=== PATIENT | female | born 1990 | race Caucasian/White ===

== ENCOUNTER 2017-05-23 20:22 | Inpatient (IN) | payer OTHER ==
[2017-05-23] MEDS ORDERED: ONDANSETRON 4 MG/2 ML VIAL ONE ×2 (20:28→22:37)
[2017-05-23] MEDS ORDERED: HYDROmorphONE/DILAUDID 2 MG/ML INJ ONE (20:29)
[2017-05-23] MEDS ORDERED: NS 1,000 ML IV ONE (20:30)
[2017-05-23] MEDS ORDERED: HYDROmorphONE/DILAUDID 2 MG/ML INJ IVP ONE ×2 (20:30→21:15)
[2017-05-23] MEDS ORDERED: ONDANSETRON 4 MG/2 ML VIAL IVP ONE (20:30)
--- NOTE | 2017-05-23 20:35 | EDPHY ---
H & P Time Seen by Provider: 05/23/17 20:23 HPI/ROS: CHIEF COMPLAINT: LTA, right lower leg injury HISTORY OF PRESENT ILLNESS: The patient is a 27 y/o female arriving via EMS as a Limited Trauma Activation complaining of pain at the site of an open fracture to her right lower leg. She was running in stockings and tripped falling down approximately 10 steps at home. She denies striking her head, loss of consciousness, neck or back pain, abdominal pain, pelvis pain, chest pain, weakness, paresthesias, or other injuries. EMS administered 200mcg IV Fentanyl en route for pain with some alleviation. She is normally healthy. Last PO intake a few hours ago. Earlier this afternoon she consumed two beers and two shots of alcohol. Tetanus UTD. REVIEW OF SYSTEMS: A 10 point review of systems was performed and is negative with the exception of the elements mentioned in the history of present illness. Past medical history: Clavicle fracture as a child Past surgical history: Denies Family history: Noncontributory Social history: Lives in [place]. Parents at bedside. Smoker. Social alcohol use. Employed at [employer] , her is in the [employer] and is stationed in [place]. General Appearance: Alert, tearful, appears in pain. BP 147/120, HR 74. Head: Normocephalic, atraumatic. Eyes: Pupils equal and round, no conjunctival injection, no discharge. ENT, Mouth: Mucous membranes are moist, no oropharyngeal erythema or edema. No hemotympanum. Dentition intact. No malocclusion. No facial bone tenderness or deformity. Neck: No lymphadenopathy, supple. No midline tenderness. Respiratory: Lungs are clear to auscultation anterolaterally; no wheezes, rales , or rhonchi. Cardiovascular: Regular rate and rhythm; no murmur, rub, or gallop. Gastrointestinal: Abdomen is soft and non tender, no masses or organomegaly. No visible trauma. Pelvis: Stable. Normal ROM of hips. Skin: Cool and mottled diffusely and dry, no rashes, normal color. Back: Nontender to palpation over the thoracolumbar spine. Extremities: Right leg: Small puncture on medial aspect of lower leg above malleolus with controlled bleeding, externally rotated, surrounding swelling. Pulses: 2+ pedal pulses. Other extremities are atraumatic. Neurological: Alert and oriented. Splinting right leg due to pain, otherwise moving extremities equally and easily. Strength 5/5 both UEs major motor groups , LLE major motor groups. Able to wiggle right toes. Psychiatric: Normal affect. Constitutional: Initial Vital Signs Temperature (C) 36.3 C 05/23/17 20:30 Heart Rate 74 05/23/17 20:30 Respiratory Rate 16 05/23/17 20:30 Blood Pressure 147/120 H 05/23/17 20:30 O2 Sat (%) 96 05/23/17 20:30 O2 Delivery Mode Room Air Allergies/Adverse Reactions: oxycodone [From Percocet] Adverse Reaction (Mild, Unverified 05/23/17 21:41) Vomiting Sulfa (Sulfonamide Antibiotics) Adverse Reaction (Mild, Unverified 05/23/17 21: 40) Abdominal Cramping Home Medications: Medication Instructions Recorded Melatonin [Melatonin 3 MG (*)] 3 mg PO HS PRN 05/23/17 Medical Decision Making - Diagnostics Imaging Results: Imaging Impressions Tibia/Fibula X-Ray 05/23/17 20:30 Impression: Comminuted displaced fractures of the distal tibial and fibular diaphyses with lateral rotation. Imaging: I viewed and interpreted images myself ED Course/Re-evaluation: This is a healthy 27 y/o female who presents with isolated injury to her right lower leg secondary to falling down 10 stairs at home after slipping. She has an open comminuted tibia and fibula fracture of her right leg confirmed on x- ray with surrounding swelling and tenderness. She is neurovascularly intact. She will need urgent orthopedic consultation. Plan for IV, labs, pain management. 1mg IV Dilaudid, 4mg IV Zofran, 5mg IV Valium, 2mg IV Ancef administered. Will maintain NPO status. 2053: Consulted with Dr. Hernandes, orthopedic surgeon. He will evaluate patient in the ED. Patient re-examined. 2+ right DP pulse. Sensation intact RLE to light touch. Lungs CTA, heart regular, abdomen soft and nontender. Back and neck nontender to palpation over spine. No long bone tenderness. Normal strength both UEs, LLE. Alert, appropriate. Additional 1mg IV Dilaudid administered for pain. 2114: Dr. Hernandes is at bedside assessing patient. Patient will be taken from ED to OR. Differential Diagnosis: I considered a differential diagnosis of traumatic injury that includes but is not limited to intracranial hemorrhage, skull fracture, concussion, vertebral injury, spinal cord injury, intrathoracic injury, intra-abdominal injury, long bone fractures, contusions, abrasions, and lacerations. - Data Points Laboratory Results: Laboratory Results 05/23/17 20:34 05/23/17 20:34 05/23/17 05/23/17 05/23/17 20:34 20:34 20:34 WBC 9.52 10^3/uL H 10^3/uL (3.80-9.50) RBC 4.51 10^6/uL 10^6/uL (4.18-5.33) Hgb 13.7 g/dL g/dL (12.6-16.3) Hct 40.8 % % (38.0-47.0) MCV 90.5 fL fL (81.5-99.8) MCH 30.4 pg pg (27.9-34.1) MCHC 33.6 g/dL g/dL (32.4-36.7) RDW 12.9 % % (11.5-15.2) Plt Count 251 10^3/uL 10^3/uL (150-400) MPV 9.1 fL fL (8.7-11.7) Neut % (Auto) 56.7 % % (39.3-74.2) Lymph % (Auto) 29.3 % % (15.0-45.0) [place] % (Auto) 11.9 % % (4.5-13.0) Eos % (Auto) 0.9 % % (0.6-7.6) Baso % (Auto) 0.9 % % (0.3-1.7) Nucleat RBC Rel Count 0.0 % % (0.0-0.2) Absolute Neuts (auto) 5.39 10^3/uL 10^3/uL (1.70-6.50) Absolute Lymphs (auto) 2.79 10^3/uL 10^3/uL (1.00-3.00) Absolute Monos (auto) 1.13 10^3/uL H 10^3/uL (0.30-0.80) Absolute Eos (auto) 0.09 10^3/uL 10^3/uL (0.03-0.40) Absolute Basos (auto) 0.09 10^3/uL 10^3/uL (0.02-0.10) Absolute Nucleated RBC 0.00 10^3/uL 10^3/uL (0-0.01) Immature Gran % 0.3 % % (0.0-1.1) Immature Gran # 0.03 10^3/uL 10^3/uL (0.00-0.10) Sodium 139 mEq/L mEq/L (135-145) Potassium 3.6 mEq/L mEq/L (3.5-5.2) Chloride 99 mEq/L mEq/L (97-110) Carbon Dioxide 27 mEq/l mEq/l (22-31) Anion Gap 13 mEq/L mEq/L (8-16) BUN 14 mg/dL mg/dL (7-23) Creatinine 0.7 mg/dL mg/dL (0.6-1.0) Estimated GFR > 60 Glucose 89 mg/dL mg/dL (70-100) Calcium 9.3 mg/dL mg/dL (8.5-10.4) Beta HCG, Qual NEGATIVE Medications Given: Discontinued Medications Diazepam (Valium) 5 mg IVP EDNOW ONE Stop: 05/23/17 20:45 Last Admin: 05/23/17 20:47 Dose: 5 mg Hydromorphone HCl (Dilaudid) 1 mg IVP EDNOW ONE Stop: 05/23/17 20:31 Last Admin: 05/23/17 20:40 Dose: 1 mg Hydromorphone HCl (Dilaudid) 1 mg IVP EDNOW ONE Stop: 05/23/17 21:16 Last Admin: 05/23/17 21:17 Dose: 1 mg Sodium Chloride (Ns) 1,000 mls @ 0 mls/hr IV ONCE ONE; Wide Open PRN Reason: Protocol Stop: 05/23/17 20:31 Last Admin: 05/23/17 20:42 Dose: 1,000 mls Cefazolin Sodium (Cefazolin Syringe) 2 gm in 20 mls @ 200 mls/hr IVP ONCALL ONE PRN Reason: Protocol Stop: 05/23/17 21:27 Last Admin: 05/23/17 21:38 Dose: 20 mls Ondansetron HCl (Zofran) 4 mg IVP EDNOW ONE Stop: 05/23/17 20:31 Last Admin: 05/23/17 20:40 Dose: 4 mg Departure - Departure Disposition: [facility] Inpatient Acute Clinical Impression: Tibia and fibula open fracture, right Qualifiers: Encounter type: initial encounter Open fracture type: open type I or II Qualified Code(s): S82.201B - Unspecified fracture of shaft of right tibia, initial encounter for open fracture type I or II Condition: Fair Report Scribed for: Lynn Loyd Report Scribed by: Monica Garcia Date of Report: 05/23/17 Time of Report: 21:19 Physician Review and Approval Statement: 05/23/17 22:03 Portions of this note were transcribed by the medical claims manager. I, Dr. Lynn Loyd, personally performed the history, physical exam, and medical decision- making; and confirmed the accuracy of the information in the transcribed note.
[2017-05-23] MEDS ORDERED: DIAZEPAM 5 MG/ML 1 ML SYR IVP ONE (20:44)
[2017-05-23 20:46] LABS: PLATELET COUNT 251 10^3/uL (150-400)
[2017-05-23] MEDS ORDERED: ceFAZolin 2 GM/SWFI 2 GM/20 ML SYR IVP ONE (21:22)
--- NOTE | 2017-05-23 22:05 | GCON ---
[f rep st] CONSULTATION ORTHOPEDIC CONSULTATION DATE OF CONSULTATION: 05/23/2017 REASON FOR CONSULTATION: Open tibia/fibula fracture, right. HISTORY OF PRESENT ILLNESS: The patient is a 27-year-old female, who slipped in her socks and fell d own about 10 stairs, was brought to the [facility] Emergency Department via ambulance, found have an open tibia and fibular fracture. I was consulted from the trauma bay. PRIOR MEDICAL HISTORY: None. SURGICAL HISTORY: None. SOCIAL HISTORY: . Lives here in town. Parents at the bedside. She smokes half-pack per day . Occasional alcohol use. She did drink earlier today. REVIEW OF SYSTEMS: No shortness of breath. No chest pain. She did not have loss of consciousness w ith this fall. PHYSICAL EXAMINATION: GENERAL: She is alert and oriented x3. Answers questions appropriately. VIT AL SIGNS: Blood pressure is 147/120, heart rate 74, respiratory rate 16, saturating 96% on room air. HEENT: Normocephalic, atraumatic. Extraocular muscles intact. NECK: Supple. There is no lympha denopathy. No JVD. CHEST: Clear to auscultation. CARDIOVASCULAR: Regular rate and rhythm. ABDOM EN: Soft, nontender, nondistended. EXTREMITIES: She has a puncture wound 4 cm proximal to the ankl e joint. It is actively bleeding. There is a dressing in place. The foot is externally rotated. S he does have 2+ dorsalis pedis and posterior tibial pulses. She can move her toes. Sensation to lig ht touch is intact on both the dorsum and plantar aspect of her foot. X-RAYS: Three views of the tibia show a complex tibia and fibula fracture. ASSESSMENT: Open tibia/fibula fracture, right lower extremity. PLAN: She is given 2 g of Ancef in the emergency department. She will be brought up urgently to the operating room for irrigation and debridement, and an intramedullary nailing of the tibia and open r eduction and internal fixation of the fibula. Risks and benefits including potential for infection, blood clots were all discussed. She understands these risks, wished to proceed. /[id number]/MODL
--- NOTE | 2017-05-23 22:27 | PDANEPAE ---
ANE History of Present Illness ORIF and washout R tib/fib ANE Past Medical History - Pulmonary History Hx Oxygen in Use at Home: No - Endocrine History Hx Diabetes: No ANE Review of Systems Review of Systems: - Exercise capacity Exercise capacity: >=4 METS ANE Patient History - Allergies Allergies/Adverse Reactions: oxycodone [From Percocet] Adverse Reaction (Mild, Unverified 05/23/17 21:41) Vomiting Sulfa (Sulfonamide Antibiotics) Adverse Reaction (Mild, Unverified 05/23/17 21: 40) Abdominal Cramping - Home Medications Home medications: home medication list seen and reviewed Home Medications: Melatonin [Melatonin 3 MG (*)] 3 mg PO HS PRN 05/23/17 [Last Taken 2 Weeks Ago ~ 05/09/17] - NPO status NPO Since - Liquids (Date): 05/23/17 NPO Since - Liquids (Time): 17:15 NPO Since - Solids (Date): 05/23/17 NPO Since - Solids (Time): 16:00 - Smoking Hx Smoking Status: Light smoker (1/2 ppd) - Alcohol Use Alcohol Use: Occasionally ANE Labs/Vital Signs - Labs Result Diagrams: 05/23/17 20:34 05/23/17 20:34 - Vital Signs Blood Pressure: 139/98 Heart Rate: 78 Respiratory Rate: 16 O2 Sat (%): 98 Height: 162.56 cm Weight: 63.503 kg ANE Physical Exam - Airway Mallampati Score: Class 2 Mouth exam: normal dental/mouth exam - Pulmonary Pulmonary: no respiratory distress - Cardiovascular Cardiovascular: regular rate and rhythym - ASA Status ASA Status: II, E ANE Anesthesia Plan Anesthesia Plan: general endotracheal anesthesia (RSI declines spinal)
[2017-05-23] MEDS ORDERED: PROPOFOL/EMULSION 500 MG/50 ML BOTTLE IV ONE (22:34)
[2017-05-23] MEDS ORDERED: LIDOCAINE HCL 160 MG/4 ML LTA KIT TP ONE (22:36)
[2017-05-23] MEDS ORDERED: DEXAMETHASONE 4 MG/ML VIAL ONE ×2 (22:37)
[2017-05-23] MEDS ORDERED: ROCURONIUM 50 MG/5 ML VIAL ONE (22:37)
[2017-05-23] MEDS ORDERED: LIDOCAINE 2% 100 MG/5 ML SYR ONE (22:38)
[2017-05-23] MEDS ORDERED: ceFAZolin 1 GM VIAL ONE (23:14)
[2017-05-24] MEDS ORDERED: SUGAMMADEX SODIUM 200 MG/2 ML VIAL IVP ONE (00:41)
[2017-05-24] MEDS ORDERED: ONDANSETRON 4 MG/2 ML VIAL IVP PRN (00:56)
[2017-05-24] MEDS ORDERED: ALBUTEROL 3 ML DEYVIAL IH PRN (00:56)
[2017-05-24] MEDS ORDERED: ACETAMINOPHEN 500 MG TAB PO PRN (00:56)
[2017-05-24] MEDS ORDERED: LABETALOL HCL 5 MG/ML 20 ML MDV IVP PRN (00:56)
[2017-05-24] MEDS ORDERED: oxyCODONE IR 5 MG TAB PO PRN (00:56)
[2017-05-24] MEDS ORDERED: PROMETHAZINE HCL 25 MG/ML INJ IVP PRN (00:56)
[2017-05-24] MEDS ORDERED: DEXAMETHASONE 4 MG/ML VIAL IVP PRN (00:56)
[2017-05-24] MEDS ORDERED: NALOXONE HCL 0.4 MG/ML INJ IVP PRN (00:56)
[2017-05-24] MEDS ORDERED: LR 500 ML IV PRN (00:56)
[2017-05-24] MEDS ORDERED: METOCLOPRAMIDE 10 MG/2 ML VIAL IVP PRN (00:56)
[2017-05-24] MEDS ORDERED: HYDROCODONE/APAP 5/325 TAB PO PRN (00:56)
--- NOTE | 2017-05-24 01:03 | POSTOPPROG ---
Post Op Note Date of Operation: 05/24/17 Surgeon: Robby Hernandes Anesthesiologist: Santana Anesthesia: GET(General Endotracheal) Pre-op Diagnosis: open tib/fibula fracture Post-op Diagnosis: same Procedure: 1. IMN tibia, 2. ORIF fibula, 3. I&D Findings: open fx Inf/Abcess present in the surg proc area at time of surgery?: No EBL: 100-500 Complications: none
[2017-05-24] MEDS ORDERED: fentaNYL 100 MCG/2 ML INJ ONE (01:27)
[2017-05-24] MEDS: fentaNYL 100 MCG/2 ML INJ IVP PRN ×2 (01:28→01:43)
[2017-05-24] MEDS: NS 1,000 ML IV SCH ×2 (02:24→11:13)
--- NOTE | 2017-05-24 05:36 | GOP ---
[f rep st] OPERATIVE REPORT DATE OF OPERATION: 05/23/2017 SURGEON: Robby Hernandes MD ANESTHESIA: Dr. Dillon, general. PREOPERATIVE DIAGNOSIS: Open tibia-fibular fracture, right. POSTOPERATIVE DIAGNOSIS: Open tibia-fibular fracture, right. PROCEDURE PERFORMED: 1. Irrigation and debridement of muscle, tendon, bone. 2. Intramedullary nailing, right tibia. 3. Open reduction, internal fixation, fibula. FINDINGS: ESTIMATED BLOOD LOSS: 150 mL. INDICATIONS: Eulalia is a 27-year-old female who fell down 10 stairs earlier today and sustained an ope n tibia fibula fracture. She was given 2 g of Ancef in the operating room. I evaluated her in the t rauma bay and we brought her up to the operating room emergently for irrigation, debridement and fixa tion of her fractures. Her first dose of antibiotic was at 9:30 which was 2 g of Ancef. We gave her second a gram of Ancef at the start of surgery. I then expanded the laceration on the distal third of the tibia, both proximally and distally, irrigated the wound with 2 L pulsatile lavage. We then f lexed the knee up and got our starting point in the tibia on the medial side of the patellar tendon. Confirmed the guidewire position with AP lateral fluoroscopic images. We then used our starting herman velma into the tibial canal holding the fracture reduced. We drilled the proximal end of the tibia and then passed a ball-tip guidewire to the physeal scar. Its position was confirmed with AP lateral fl uoroscopic images. We then began reaming starting at a size 8.5 and reamed up to a size 11. We piotr ured that which measured 330 mm long and then we placed a 10 x 330 mm nail. We placed one proximal s tatic locking screw using the jig, and then using a perfect [place] technique placed 2 distal locking screws medial to lateral. Final imaging was obtained which showed satisfactory reduction of the frac ture and placement of the nail with hardware. I then turned my attention to the mid aspect of the fi bula. Soft tissue was carefully dissected. Superficial peroneal nerve was identified and retracted and protected throughout the entirety of the case. The fracture was identified. It was comminuted i n approximately 6 pieces. I held the larger fragments together with tenaculum clamp. Placed a one-t hird tubular plate in place and using a bridging technique bridged the fracture which gave satisfacto ry reduction. Final imaging was obtained. Again satisfactory reduction of both fractures with [employer] placement of the hardware. Wounds were all irrigated a final time. Deep layers closed with 0 Vicryl, superficial layers closed with 2-0 Vicryl. Skin was closed with skin elvia. A sterile d ressing was applied. Posterior splint was applied. Patient was awakened from anesthesia, taken to [facility] recovery room in satisfactory condition. There were no immediate intraoperative complications. DESCRIPTION OF PROCEDURE: COMPLICATIONS: None. DRAINS: None. TOTAL TOURNIQUET TIME: 97 minutes at 250 mmHg. IMPLANTS USED: 1. Synthes 330 x 10 tibial nail. 2. A 10 hole one-third tubular Synthes plate. /[id number]/MODL
[2017-05-24] MEDS: ceFAZolin 2 GM/SWFI 2 GM/20 ML SYR IVP SCH ×2 (05:43→13:53)
--- NOTE | 2017-05-24 08:30 | SOAPPROG ---
SOAP Progress Note Assessment/Plan: Assessment: Plan: 1. d/c home today, if she passes PT 2. add pain meds - tramadol, dilaudid, flexeril 3. be sure to elevate leg above heart 05/24/17 08:29 Subjective: Pt reports moderate to severe pain. IV pain meds providing little relief. She will be staying on the first floor with her mother for a week or so as she recovers. Objective: Vital Signs Temp Pulse Resp BP Pulse Ox 36.8 C 78 161 H 143/89 H 94 05/24/17 07:08 05/24/17 07:08 05/24/17 07:08 05/24/17 07:08 05/24/17 07:08 05/23/17 05/24/17 05/25/17 05:59 05:59 05:59 Intake Total 2200 Output Total 300 300 Balance 1900 -300 Dressing is CDI, compartments are soft, cap refill 1 sec, nvi, no evidence of DVT - Time Spent With Patient Time Spent With Patient: 20 - Pending Discharge Pending Discharge Within 24 Hours: Yes Pending Discharge Within 48 Hours: No Pending Discharge Date: 05/25/17 Pending Discharge Time: 11:00 ICD10 Worksheet Patient Problems: Problems Problem Status Onset Tibia and fibula open fracture, right Acute
[2017-05-24] MEDS ORDERED: traMADol 50 MG TAB PO PRN (08:34)
[2017-05-24] MEDS ORDERED: CYCLOBENZAPRINE 10 MG TAB PO SCH (09:00)
[2017-05-24] MEDS ORDERED: BISACODYL 10 MG SUPP PR PRN (09:16)
[2017-05-24] MEDS ORDERED: POLYETHYLENE GLYCOL 3350 17 GM PKT PO PRN (09:16)
[2017-05-24] MEDS ORDERED: LACTULOSE 20 GM/30 ML UDCUP PO PRN (09:16)
[2017-05-24] MEDS ORDERED: MAGNESIUM HYDROXIDE 30 ML UDCUP PO PRN (09:16)
[2017-05-24] MEDS ORDERED: ONDANSETRON DISINTEGRATING 4 MG TAB PO PRN (09:33)
--- NOTE | 2017-05-24 09:41 | PDMN ---
Medical Necessity Medical necessity: S1124 tib/fib shaft fx closed or open reduction A-2 days: INPT for Open -complex fx : Open Tib/fib fx : IMN tibia, ORIF fibula, I/D
[2017-05-24] MEDS: HYDROmorphONE/DILAUDID 2 MG TAB PO PRN ×2 (09:53→13:53)
[2017-05-24] MEDS: ASPIRIN EC 325 MG TAB PO SCH (09:54)
[2017-05-24] MEDS: SENNOSIDES/DOCUSATE SODIUM TAB PO SCH ×2 (09:54→20:09)
--- NOTE | 2017-05-24 11:51 | TRAUMAPNT ---
Trauma Tertiary Progress Note New Findings: Chart reviewed and patient ( and her mother ) questioned. No new information. No new findings. Assessment/Plan: PAD#1 POD#1 05/24/2017 Assessment: She has E to A changes in right lower lobe. Presume atelectasis. Plan: Q 1H awake spirometry encouraged Subjective: complains of back muscle strain that she attributes to lifting at work. Objective: Vital Signs Temp Pulse Resp BP Pulse Ox 37.0 C 80 12 148/97 H 94 05/24/17 11:44 05/24/17 11:44 05/24/17 11:44 05/24/17 11:44 05/24/17 11:44 05/23/17 05/24/17 05/25/17 05:59 05:59 05:59 Intake Total 2200 Output Total 300 1250 Balance 1900 -1250 - C-Spine Clearance Cervical Spine Cleared: Yes Provider who Cleared Cervical Spine: ER Physical Exam - Physical Exam General Appearance: WD/WN, alert, mild distress Neck: non-tender, full range of motion, supple, normal inspection Respiratory: chest non-tender, normal breath sounds, other (E to A changes in right base. to tenderness on AP or Lateral compression) Cardiac/Chest: regular rate, rhythm, other (I/ ZACK) Abdomen: normal bowel sounds, non-tender, soft Pelvic Exam: other (No tenderness on lateral compression) Rectal: deferred Back: Normal inspection Skin: normal color, warm/dry Neuro/Psych: no motor/sensory deficits, alert, normal mood/affect, oriented x 3 Time Spent w/Patient (minutes): 30
--- NOTE | 2017-05-24 14:34 | ASMTCMCOM ---
CM Note CM Note Notes: Patient had surgery early this morning on her open tib/fib fracture. She is recovering well, and PT/OT have cleared her for home. Patient normally lives in a two-story house, but will discharge home with her mother, who has a single story home. Patient's will fly in from [place] later today to support her. She does not have any Case Management needs. Date Signed: 05/24/2017 02:34 PM Electronically Signed By:Mayra Simms RN
[2017-05-24] MEDS: CYCLOBENZAPRINE 10 MG TAB PO PRN ×2 (14:37→21:33)
[2017-05-24] MEDS: ACETAMINOPHEN 325 MG TAB PO SCH ×2 (14:54→17:52)
[2017-05-24] MEDS ORDERED: HYDROmorphONE/DILAUDID 2 MG TAB PO ONE (15:00)
[2017-05-24] MEDS: HYDROmorphONE/DILAUDID 4 MG TAB PO PRN (20:09)
[2017-05-25] MEDS: ACETAMINOPHEN 325 MG TAB PO SCH ×3 (00:14→11:54)
[2017-05-25] MEDS: HYDROmorphONE/DILAUDID 4 MG TAB PO PRN ×2 (00:14→09:04)
[2017-05-25] MEDS: CYCLOBENZAPRINE 10 MG TAB PO PRN ×2 (09:03→15:23)
[2017-05-25] MEDS: SENNOSIDES/DOCUSATE SODIUM TAB PO SCH (09:03)
[2017-05-25] MEDS: ASPIRIN EC 325 MG TAB PO SCH (09:03)
[2017-05-25 11:42] VITALS: BP 131/84
--- NOTE | 2017-05-25 12:14 | SOAPPROG ---
SOAP Progress Note Assessment/Plan: Assessment: Plan: 1. d/c home today 05/24/17 08:29 05/25/17 12:14 Subjective: Doing better overall, PT passed her to go home. Objective: Vital Signs Temp Pulse Resp BP Pulse Ox 36.8 C 90 16 131/84 H 98 05/25/17 11:40 05/25/17 11:40 05/25/17 11:40 05/25/17 11:40 05/25/17 11:40 05/24/17 05/25/17 05/26/17 05:59 05:59 05:59 Intake Total 2200 850 Output Total 300 1600 Balance 1900 -750 dressing cdi, calf NT, NVI - Time Spent With Patient Time Spent With Patient: 10 - Pending Discharge Pending Discharge Within 24 Hours: Yes Pending Discharge Within 48 Hours: No Pending Discharge Date: 05/26/17 Pending Discharge Time: 11:00 ICD10 Worksheet Patient Problems: Problems Problem Status Onset Tibia and fibula open fracture, right Acute
--- NOTE | 2017-06-05 20:03 | GPROG ---
[f rep st] PROGRESS NOTE POST-ANESTHESIA NOTE. DATE OF SERVICE: 06/05/2017 The date of her postop visit was May 24 at about 1 in the morning, at which point she was still hav ing significant pain after anesthesia despite significant amounts of narcotics, but further treatment was underway. She was having no cardiovascular or respiratory issues. No significant nausea, vomit ing, and no other anesthesia complications were noted. /[id number]/MODL
--- NOTE | 2017-06-21 20:26 | GDS ---
[f rep st] DISCHARGE SUMMARY REASON FOR ADMISSION: Open tib-fib fracture, right. PROCEDURE PERFORMED: Intramedullary nailing, right tibia, and open reduction-internal fixation, righ t fibula, with irrigation and debridement. HISTORY: The patient is a 27-year-old female, who slipped and fell down about 10 stairs and sustaine d an open tib-fib fracture. She was evaluated in the trauma bay, brought to the operating room for de finitive fixation and washout of her fractures. HOSPITAL COURSE: She underwent washout of her fractures and fixation on 05/24/2017. She was transfer red to the orthopedic floor postoperatively, mobilized with physical and occupational therapy. She wa s nonweightbearing on the right lower extremity. She was started on Xarelto for DVT prophylaxis. She was discharged home on 05/25/2017. She will follow up with me in the office in a week to 10 days for casting of the right lower extremity. She will continue oxycodone for pain control. Continue the Xare lto for 14 days postoperatively for DVT prophylaxis, as well as DAVID hose on the uninvolved side for 1 0 days. CONDITION AT DISCHARGE: Stable. DISCHARGE MEDICATIONS: Resume her home medications. /[id number]/MODL
== END 2017-05-25 15:44 | disposition home or self-care (01) | DRG 494 ==
LOC: EDUNIT# → OBSVTOIN 05-24 01:04 → F3N 05-24 02:00
PROVIDERS: ADMIT Orthopaedic Surgery; ATTEND Orthopaedic Surgery
PROC: 0QSJ04Z Reposition Right Fibula with Internal Fixation Device, Open Approach (ICD-10-PCS; principal; 2017-05-23 21:45)
PROC: 0QSG06Z Reposition Right Tibia with Intramedullary Internal Fixation Device, Open Approach (ICD-10-PCS; principal; 2017-05-23 21:45)
DX: S82.251B Displaced comminuted fracture of shaft of right tibia, initial encounter for open fracture type I or II (principal); S82.451B Displaced comminuted fracture of shaft of right fibula, initial encounter for open fracture type I or II; W10.8XXA Fall (on) (from) other stairs and steps, initial encounter; Y93.02 Activity, running; Y92.018 Other place in single-family (private) house as the place of occurrence of the external cause
CPT/HCPCS: 96374; 97116-GP; 97162-GP; 97165-GO; 97535-GO; C1713; C1769; J0690; J1100; J1170; J2001; J2270; J2405; J2704; J3010

== ENCOUNTER → 2017-10-17 | Outpatient (CLI) | payer OTHER | LOC: BMCIMAGING 13:25 | PROVIDERS: ATTEND Emergency Medicine | DX: S82.841A Displaced bimalleolar fracture of right lower leg, initial encounter for closed fracture (principal); S82.491D Other fracture of shaft of right fibula, subsequent encounter for closed fracture with routine healing; S82.291D Other fracture of shaft of right tibia, subsequent encounter for closed fracture with routine healing ==

== ENCOUNTER → 2017-10-27 | Outpatient (CLI) | payer OTHER | LOC: BMCIMAGING 16:34 | PROVIDERS: ATTEND Family Medicine | DX: S82.841K Displaced bimalleolar fracture of right lower leg, subsequent encounter for closed fracture with nonunion (principal) ==